=== PATIENT | male | born 1945 | race Caucasian/White ===

== ENCOUNTER 2017-08-02 15:38 | Emergency (ER) | payer MEDICARE ==
[~2017-08-02] VITALS: Ht 167.6 cm; Wt 72.6 kg
[2017-08-02 15:43] VITALS: Ht 167.6 cm; Wt 72.6 kg
[2017-08-02 17:06] LABS: BASOPHIL % 0.5 % (0-2); PLATELET COUNT 164 x10^3mcL (130-400)
[2017-08-02 17:39] LABS: CALCIUM 7.7 mg/dL (8.5-10.1); CARBON DIOXIDE 24.6 mmol/L (21-32); CHLORIDE SERUM 106 mmol/L (98-107); GLUCOSE SERUM 161 mg/dL (74-106); POTASSIUM SERUM 3.4 mmol/L (3.5-5.1); SODIUM SERUM 141 mmol/L (136-145)
[2017-08-02 17:44] LABS: ALBUMIN 2.6 g/dL (3.4-5.0); ALKALINE PHOSPHATASE 71 U/L (46-116); ALT/SGPT 17 U/L (16-63); AST/SGOT 27 U/L (15-37); TOTAL PROTEIN, SERUM 5.8 g/dL (6.4-8.2)
[2017-08-02 18:55] LABS: microscopic required? YES; urine erythrocyte 3+ (NEGATIVE)
[2017-08-02 19:28] VITALS: BP 116/64
== END 2017-08-02 19:28 | disposition home or self-care (01) ==
LOC: ED 15:38
PROVIDERS: Emergency Medicine
DX: R50.9 Fever, unspecified (principal); N41.0 Acute prostatitis
CPT/HCPCS: 83880; J1885

== ENCOUNTER 2017-08-04 18:06 | Inpatient (IN) | payer MEDICARE ==
[~2017-08-04] VITALS: Ht 167.6 cm; Wt 71.7 kg
[2017-08-04 19:09] LABS: BASOPHIL % 0.3 % (0-2); PLATELET COUNT 154 x10^3mcL (130-400); RED CELL DISTRIBUTION WIDTH 12.5 % (11.5-14.5)
[2017-08-04 19:18] LABS: CALCIUM 8.4 mg/dL (8.5-10.1); CHLORIDE SERUM 103 mmol/L (98-107); CREATININE SERUM 1.1 mg/dL (0.7-1.3); GLUCOSE SERUM 184 mg/dL (74-106); POTASSIUM SERUM 3.5 mmol/L (3.5-5.1); SODIUM SERUM 138 mmol/L (136-145)
[2017-08-04 19:20] LABS: microscopic required? YES; urine erythrocyte 2+ (NEGATIVE)
[2017-08-04] MEDS ORDERED: METFORMIN HYDR500 M1 (19:24)
[2017-08-04 19:30] LABS: ALKALINE PHOSPHATASE 87 U/L (46-116); ALT/SGPT 25 U/L (16-63); AST/SGOT 24 U/L (15-37); TOTAL PROTEIN, SERUM 7.1 g/dL (6.4-8.2)
[2017-08-04 19:31] LABS: ALBUMIN 2.9 g/dL (3.4-5.0)
[2017-08-04 19:49] LABS: CK-MB < 0.5 ng/mL (0-3.6); CREATINE KINASE 64 U/L (39-308)
[2017-08-04 21:00] VITALS: BP 126/69
[2017-08-04 21:00] LABS: PHOSPHOROUS 2.3 mg/dL (2.5-4.9)
[2017-08-04 21:11] LABS: T3 TOTAL 0.8 ng/mL
[2017-08-04 21:12] LABS: FREE T4 1.04 ng/dL (0.76-1.46); FREE THYROXINE INDEX 2.4 ug/dL (1.4-4.5); T4(THYROXINE) 7.1 ug/dL (4.7-13.3)
[2017-08-04 21:57] LABS: AMPHETAMINE QUAL UR NONE DETECTED (NEG <=1000)
[2017-08-05 05:49] VITALS: BP 109/57
[2017-08-05 06:43] LABS: CALCIUM 7.8 mg/dL (8.5-10.1); CARBON DIOXIDE 26.7 mmol/L (21-32); CHLORIDE SERUM 107 mmol/L (98-107); CREATININE SERUM 0.9 mg/dL (0.7-1.3); GLUCOSE SERUM 138 mg/dL (74-106); POTASSIUM SERUM 3.5 mmol/L (3.5-5.1); SODIUM SERUM 141 mmol/L (136-145); TRIGLYCERIDES 94 mg/dL (<150)
[2017-08-05 06:52] LABS: BASOPHIL % 0.3 % (0-2); PLATELET COUNT 131 x10^3mcL (130-400); RED CELL DISTRIBUTION WIDTH 11.9 % (11.5-14.5)
[2017-08-05 06:54] LABS: CHOLESTEROL 85 mg/dL (<200); HDL CHOLESTEROL 21 mg/dL (40-60)
[2017-08-05 09:51] VITALS: BP 145/81
[2017-08-05 13:03] VITALS: BP 151/73
[2017-08-05 16:11] VITALS: BP 123/74
[2017-08-05 21:12] VITALS: BP 130/77
[2017-08-06 06:00] VITALS: BP 130/67
[2017-08-06 06:39] LABS: CARBON DIOXIDE 26.8 mmol/L (21-32); CHLORIDE SERUM 108 mmol/L (98-107); CREATININE SERUM 0.9 mg/dL (0.7-1.3); GLUCOSE SERUM 115 mg/dL (74-106); MAGNESIUM 2.1 mg/dL (1.8-2.4); PHOSPHOROUS 3.1 mg/dL (2.5-4.9); POTASSIUM SERUM 3.3 mmol/L (3.5-5.1); SODIUM SERUM 143 mmol/L (136-145)
[2017-08-06 08:34] LABS: BASOPHIL % 0.4 % (0-2); PLATELET COUNT 155 x10^3mcL (130-400); RED CELL DISTRIBUTION WIDTH 12.2 % (11.5-14.5)
[2017-08-06 09:18] VITALS: BP 132/75
[2017-08-06 11:55] VITALS: BP 110/67
[2017-08-06 15:21] VITALS: Ht 167.6 cm; Wt 71.7 kg
[2017-08-06 17:21] VITALS: BP 134/74
[2017-08-06 19:59] VITALS: BP 110/68
[2017-08-07 05:24] VITALS: BP 135/75
[2017-08-07 06:54] LABS: CALCIUM 8.1 mg/dL (8.5-10.1); CHLORIDE SERUM 112 mmol/L (98-107); CREATININE SERUM 0.9 mg/dL (0.7-1.3); GLUCOSE SERUM 103 mg/dL (74-106); POTASSIUM SERUM 3.5 mmol/L (3.5-5.1); SODIUM SERUM 143 mmol/L (136-145)
[2017-08-07 07:01] LABS: BASOPHIL % 0.4 % (0-2); PLATELET COUNT 194 x10^3mcL (130-400)
[2017-08-07 09:45] VITALS: BP 119/71
[2017-08-07 12:46] VITALS: BP 123/73
[2017-08-07 17:49] VITALS: BP 127/76
[2017-08-07 20:38] VITALS: BP 126/71
[2017-08-08 06:01] VITALS: BP 139/72
[2017-08-08 07:15] LABS: PLATELET COUNT 219 x10^3mcL (130-400); RED CELL DISTRIBUTION WIDTH 12.2 % (11.5-14.5)
[2017-08-08 07:22] LABS: CARBON DIOXIDE 28.1 mmol/L (21-32); CHLORIDE SERUM 109 mmol/L (98-107); CREATININE SERUM 0.9 mg/dL (0.7-1.3); GLUCOSE SERUM 112 mg/dL (74-106); PHOSPHOROUS 3.8 mg/dL (2.5-4.9); POTASSIUM SERUM 3.3 mmol/L (3.5-5.1); SODIUM SERUM 146 mmol/L (136-145)
[2017-08-08 10:46] VITALS: BP 139/97
[2017-08-08] MEDS ORDERED: GENTAMICIN SUL IV (13:59)
[2017-08-08] MEDS ORDERED: PROS5 PO (13:59)
[2017-08-08] MEDS ORDERED: LAC PO (13:59)
[2017-08-08 14:11] VITALS: BP 112/72
[2017-08-08 15:18] VITALS: BP 112/72
== END 2017-08-08 15:55 | DRG 871 ==
LOC: ED 18:06 → DU 19:57 → MU 08-07 21:31
PROVIDERS: Emergency Medicine; Family Medicine; Student in an Organized Health Care Education/Training Program
DX: A41.51 Sepsis due to Escherichia coli [E. coli] (principal); N17.0 Acute kidney failure with tubular necrosis; E44.0 Moderate protein-calorie malnutrition; J98.11 Atelectasis; E87.0 Hyperosmolality and hypernatremia; E11.65 Type 2 diabetes mellitus with hyperglycemia; N30.81 Other cystitis with hematuria; E87.6 Hypokalemia; E83.51 Hypocalcemia; R80.9 Proteinuria, unspecified; E87.8 Other disorders of electrolyte and fluid balance, not elsewhere classified; E83.39 Other disorders of phosphorus metabolism; I10 Essential (primary) hypertension; D64.9 Anemia, unspecified; N40.0 Benign prostatic hyperplasia without lower urinary tract symptoms; Z79.84 Long term (current) use of oral hypoglycemic drugs; Z68.28 Body mass index [BMI] 28.0-28.9, adult
CPT/HCPCS: 82962; 83880; 84439; 94150; C1751; J0696; J1580; J7030; Q0092